=== PATIENT | male | born 1960 | race Two or more races ===

== ENCOUNTER 2018-01-24 09:51 | Outpatient (CLI) | payer OTHER | END 2018-01-24 10:28 | disposition home or self-care (01) | LOC: SONOGRAMA 09:51 | DX: R16.0 Hepatomegaly, not elsewhere classified (principal); K30 Functional dyspepsia ==

== ENCOUNTER → 2019-08-11 | Outpatient (CLI) | payer OTHER | END | disposition home or self-care (01) | LOC: RAD 15:20 | DX: R05 Cough (principal) ==

== ENCOUNTER 2020-01-07 08:33 | Outpatient (CLI) | payer OTHER | END 2020-01-07 08:43 | disposition home or self-care (01) | LOC: SONOGRAMA 08:33 | DX: R10.11 Right upper quadrant pain (principal); R10.12 Left upper quadrant pain ==

== ENCOUNTER 2020-04-12 07:37 | Outpatient (CLI) | payer OTHER | END 2020-04-12 07:50 | disposition home or self-care (01) | LOC: SONOGRAMA 07:37 → MAMO-SONO 07:45 → SONOGRAMA 07:50 | PROVIDERS: ATTEND Internal Medicine | DX: R10.84 Generalized abdominal pain (principal); K80.10 Calculus of gallbladder with chronic cholecystitis without obstruction ==

== ENCOUNTER 2020-09-20 09:49 | Outpatient (CLI) | payer OTHER | END 2020-09-20 09:59 | disposition home or self-care (01) | LOC: SONOGRAMA 09:49 | PROVIDERS: ATTEND Physical Medicine & Rehabilitation Sports Medicine | DX: M25.512 Pain in left shoulder (principal); M75.102 Unspecified rotator cuff tear or rupture of left shoulder, not specified as traumatic ==

== ENCOUNTER 2021-03-06 08:21 | Outpatient (CLI) | payer OTHER | END 2021-03-06 08:29 | disposition home or self-care (01) | LOC: SONOGRAMA 08:21 | PROVIDERS: ATTEND Surgery | DX: K80.80 Other cholelithiasis without obstruction (principal); K80.10 Calculus of gallbladder with chronic cholecystitis without obstruction ==

== ENCOUNTER 2022-10-23 09:37 | Outpatient (CLI) | payer OTHER | END 2022-10-23 09:49 | disposition home or self-care (01) | LOC: SONOGRAMA 09:37 | PROVIDERS: ATTEND Physical Medicine & Rehabilitation Sports Medicine | DX: M25.511 Pain in right shoulder (principal); M75.51 Bursitis of right shoulder; M75.121 Complete rotator cuff tear or rupture of right shoulder, not specified as traumatic ==